=== PATIENT | male | born 1990 | race Caucasian/White ===

== ENCOUNTER 2017-06-14 17:16 | Emergency (ER) | payer OTHER ==
[~2017-06-14] VITALS: Ht 180.3 cm; Wt 125.0 kg
[2017-06-14 17:20] VITALS: BP 119/80
[2017-06-14] MEDS ORDERED: PROPARACAINE OPHTH 0.5%, 15ML EACHEYE ONE (18:00)
[2017-06-14] MEDS ORDERED: DIPH,PERTUSS(ACELL),TET VAC/PF 0.5 ML IM-VACC ONE ×2 (18:00→18:24)
[2017-06-14] MEDS ORDERED: FLUORESCEIN OPHTHALMIC 1 MG STRIP EACHEYE ONE (18:00)
[2017-06-14] MEDS ORDERED: FLUORESCEIN OPHTHALMIC 1 MG STRIP ONE (18:09)
[2017-06-14] MEDS ORDERED: PROPARACAINE OPHTH 0.5%, 15ML ONE (18:09)
== END 2017-06-14 18:45 | disposition home or self-care (01) ==
LOC: ED 18:25
DX: S05.01XA Injury of conjunctiva and corneal abrasion without foreign body, right eye, initial encounter (principal); X58.XXXA Exposure to other specified factors, initial encounter; Y93.89 Activity, other specified; Y92.89 Other specified places as the place of occurrence of the external cause; Y99.9 Unspecified external cause status
CPT/HCPCS: 90471; 90715